=== PATIENT | male | born 1955 | race Caucasian/White ===

== ENCOUNTER 2019-12-17 17:40 | Emergency (ER) | payer OTHER ==
[2019-12-17 17:47] VITALS: BP 145/106; PULSE 75; TEMP 98; BMI 35.6
[2019-12-17 18:46] LABS: ALBUMIN 3.7 g/dl (3.4-5.0); BILIRUBIN,TOTAL 0.4 mg/dL (0.2-1); BLOOD UREA NITROGEN 17.5 mg/dL (7-18); CREATININE 0.9 mg/dL (0.55-1.3); POTASSIUM 4.3 mmol/L (3.5-5.1); TOT PROT 7.1 g/dl (6.4-8.2)
[2019-12-17 18:49] LABS: INR 0.98 (0.83-1.09); PROTHROMBIN TIME (PATIENT) 11.6 SEC (9.7-13.0)
[2019-12-17 19:28] LABS: ACTIVATED PTT 26.9 SECONDS (25.2-36.5)
[2019-12-17 20:10] LABS: BASO % 1.3 % (0-2.0); EOS % 13.8 % (0-4.5); HEMATOCRIT 45.6 % (35.4-49); HEMOGLOBIN 15.2 GM/dL (11.7-16.9); LYMPH % 34.4 % (8-40); MCHC 33.4 g/dl (32.0-35.9); MEAN CELL VOLUME 92.8 fl (80-96); MEAN PLT VOLUME 7.3 fl (7.5-11.1); MONO % 8.8 % (3.8-10.2); NEUT % 41.7 % (42.8-82.8); PLATELET COUNT 277 K/MM3 (134-434); RBC 4.92 M/mm3 (4.00-5.60); RDW 15.2 % (11.9-15.9)
== END 2019-12-17 21:25 | disposition home or self-care (01) ==
LOC: JER 17:40
DX: I82.412 Acute embolism and thrombosis of left femoral vein (principal)
CPT/HCPCS: 36415; 80053; 85025; 85610; 85730; 99284-25

== ENCOUNTER 2020-12-12 15:36 | Emergency (ER) | payer OTHER ==
[2020-12-12 15:57] VITALS: BMI 34.4
[2020-12-12] MEDS ORDERED: ACETAMINOPHEN 1000 MG/100 ML VIAL (NON FORMULARY) IVPB ONE (16:37)
[2020-12-12] MEDS ORDERED: ACETAMINOPHEN INJECTION 100 ML IVPB ONE (17:16)
[2020-12-12 17:23] LABS: BASO % 1.1 % (0-2.0); EOS % 6.3 % (0-4.5); HEMATOCRIT 43.5 % (35.4-49); HEMOGLOBIN 15.2 GM/dL (11.7-16.9); LYMPH % 29.9 % (8-40); MCH 30.8 pg (25.7-33.7); MCHC 34.8 g/dl (32.0-35.9); MEAN CELL VOLUME 88.5 fl (80-96); MEAN PLT VOLUME 7.5 fl (7.5-11.1); MONO % 10.8 % (3.8-10.2); NEUT % 51.9 % (42.8-82.8); PLATELET COUNT 279 10^3/uL (134-434); RBC 4.92 M/mm3 (4.00-5.60); RDW 13.7 % (11.9-15.9); WHITE BLOOD COUNT 7.3 K/mm3 (4.0-10.0)
[2020-12-12 17:30] LABS: INR 1.03 (0.83-1.09); PROTHROMBIN TIME (PATIENT) 12.7 SEC (9.7-13.0)
[2020-12-12 17:33] LABS: ACTIVATED PTT 33.4 SECONDS (25.2-36.5)
[2020-12-12 17:47] LABS: CALCIUM 8.9 mg/dL (8.5-10.1)
[2020-12-12 17:48] LABS: ALBUMIN 3.8 g/dl (3.4-5.0); BLOOD UREA NITROGEN 13.4 mg/dL (7-18)
[2020-12-12 17:51] LABS: CREATININE 0.8 mg/dL (0.55-1.3)
[2020-12-12 17:51] LABS: URINE APPEARANCE CLOUDY; URINE BILIRUBIN NEGATIVE (NEGATIVE); URINE COLOR YELLOW; URINE GLUCOSE (UA) NEGATIVE (NEGATIVE); URINE KETONE NEGATIVE (NEGATIVE); URINE LEUK ESTERASE NEGATIVE (NEGATIVE); URINE NITRITE NEGATIVE (NEGATIVE); URINE PROTEIN NEGATIVE (NEGATIVE)
[2020-12-12 17:52] LABS: BILIRUBIN,TOTAL 0.7 mg/dL (0.2-1); TOT PROT 7.6 g/dl (6.4-8.2)
[2020-12-12] MEDS ORDERED: SODIUM CHLORIDE 1,000 ML IV STA (20:53)
[2020-12-12 23:33] VITALS: BP 132/81; PULSE 79; TEMP 98.4
== END 2020-12-12 23:33 | disposition home or self-care (01) ==
LOC: JER 15:36
PROC: 3E0333Z Introduction of Anti-inflammatory into Peripheral Vein, Percutaneous Approach (ICD-10-PCS; principal; 2020-12-12)
PROC: 3E0337Z Introduction of Electrolytic and Water Balance Substance into Peripheral Vein, Percutaneous Approach (ICD-10-PCS; 2020-12-12)
DX: R07.89 Other chest pain (principal)
CPT/HCPCS: 36415; 71045-TC-FY; 74177-TC; 80053; 81003; 85025; 85379; 85610; 85730; 87086; 93005; 93010; 99285-25; J0131; Q9967